=== PATIENT | male | born 1985 | race American Indian/Alaskan Native ===

== ENCOUNTER 2017-10-10 00:19 | Emergency (ER) | payer SELFPAY ==
[2017-10-10 00:30] VITALS: BP 144/96
[2017-10-10] MEDS ORDERED: ULTRAM ONE (03:29)
[2017-10-10] MEDS ORDERED: ULTRAM PO ONE (03:31)
--- NOTE | 2017-10-10 04:31 | Emergency Department Report ---
Upper Extremity - HPI Chief Complaint: Extremity Injury, Upper Stated Complaint: RIGHT HAND FINGER PAIN Time Seen by Provider: 10/10/17 03:44 Upper Extremity: Right Index Finger, Right Middle Finger (snagged finger in copier strap at work 1 week ago), Right Ring Finger Occurred When: >5 Days (7 days ago) Mechanism: Other (copier strap caught in right 3rd finger nail at work last Tuesday) Severity: moderate Symptoms: Yes Pain with Movement, No Deformity, No Limited Range of Movement, No Numbness, No Weakness, No Swelling, No Bruising/Ecchymosis, No Laceration or Abrasion Other History: This is a 32 y.o. male that presents with pain to 3rd finger nail on right hand. Patient reports snagging 3rd finger of right hand on copier strap while lifting multiple cases of paper. He pulled strap from under 3rd finger, it rubbed against index and ringer finger. He is now having discomfort to index and ring finger of right hand. Patient report pain as sharp with touch. It got worse as the week progressed. He is taking OTC pain medication with no improvement of symtpoms. He started taking left over antibiotics but no improvement of pain. Denies numbness, tingling, swelling, erythema, and deformity. ED Review of Systems ROS: Stated complaint: RIGHT HAND FINGER PAIN Other details as noted in HPI Constitutional: denies: chills, fever, malaise Respiratory: denies: cough, shortness of breath, wheezing Cardiovascular: denies: chest pain, palpitations, edema, syncope Gastrointestinal: denies: abdominal pain, nausea, vomiting, diarrhea Musculoskeletal: myalgia (tenderness on palpation of 3rd finger nail). denies: back pain, joint swelling, arthralgia Skin: denies: rash, lesions, change in hair/nails Neurological: denies: headache, weakness, numbness, paresthesias ED Past Medical Hx - Past Medical History Previous Medical History?: No - Surgical History Past Surgical History?: Yes Hx Cholecystectomy: Yes - Social History Smoking Status: Current Every Day Smoker Substance Use Type: None - Medications Home Medications: Home Medications Medication Instructions Recorded Confirmed Last Taken Type Bacitracin Zinc [Antibiotic] 28.4 gm TP BID #1 tube 10/10/17 Unknown Rx Ibuprofen 800 mg PO Q6H PRN #20 tablet 10/10/17 Unknown Rx Upper Extremity Exam - Exam General: Vital signs noted. No distress. Alert and acting appropriately. Head and Torso: No HEENT Abnormality, No Neck Tenderness, No Chest/Lungs Abnormality, No Abdominal Tenderness, No Back Tenderness Shoulder Exam: Yes Normal Range of Motion in Shoulder, No Shoulder Tenderness, No Clavicle Tenderness, No Shoulder Deformity, No AC Joint Tenderness Arm Exam: No Arm/Humerus Tenderness, No Arm Deformity Elbow: No Elbow Tenderness, No Normal Range of Motion in Elbow, No Elbow Deformity Forearm: No Forearm Tenderness, No Forearm Deformity, No Pain with Pronation, No Pain with Supination Wrist: Yes Normal ROM in Wrist, No Wrist Tenderness, No Wrist Deformity, No Snuffbox Tenderness, No Pain with Axial Thumb Compression Hand: Yes Hand Tenderness (on palpation of right 3rd, distal palanx around nail tip, nail bed intake, no swelling, hematoma, or laceration), Yes Normal ROM in Digit(s), No Hand Deformity, No Digit Tenderness, No Digit(s) Deformity, No Tendon Dysfunction CMS Exam: Yes Normal Distal Pulses, Yes Normal Capillary Refill, Yes Normal Distal Sensation, No Broken Skin ED Course Vital Signs 10/10/17 10/10/17 00:21 00:27 Temperature 98.4 F 98.4 F Pulse Rate 69 72 Respiratory 18 17 Rate Blood Pressure 144/96 144/96 O2 Sat by Pulse 97 99 Oximetry ED Medical Decision Making - Medical Decision Making This is a 32 y.o. male presents with right 3rd digit pain for 1 week. Patient examined by me. Patient is non-toxic appearing and stable. Given tramadol 50 mg po once in ER. Reports pain improved. Physical examination is susceptible of right finger nail bed injury. Discharged home for outpatient treatment with bacitracin ointment and Ibuprofen 800 mg po q6h #20 for pain. Discussed ER care plan with patient. Patient agreed with plan. F/U with PCP in 2-3 days. Critical care attestation.: If time is entered above; I have spent that time in minutes in the direct care of this critically ill patient, excluding procedure time. ED Disposition Clinical Impression: Pain in finger of right hand Injury of nail bed of finger of right hand Qualifiers: Encounter type: initial encounter Qualified Code(s): S69.91XA - Unspecified injury of right wrist, hand and finger(s), initial encounter Disposition: TO HOME OR SELFCARE Is pt being admited?: No Does the pt Need Aspirin: No Condition: Stable Instructions: Arthralgia (ED) Additional Instructions: Take tylenol or ibuprofen for pain. Keep right hand clean with soap and water and apply bacitracin ointment to affected nails twice a day. Follow up with primary care provider in 2-3 days. Prescriptions: Bacitracin Zinc [Antibiotic] 28.4 gm TP BID #1 tube Ibuprofen 800 mg PO Q6H PRN #20 tablet PRN Reason: Pain Referrals: [facility] [Outside] - 3-5 Days [facility] [Outside] - 3-5 Days [facility] [Outside] - 3-5 Days Forms: Work/School Release Form(ED) Time of Disposition: 04:43 Print Language: SALVADOREAN
== END 2017-10-10 04:45 | disposition home or self-care (01) ==
LOC: ED 00:19
DX: S69.91XA Unspecified injury of right wrist, hand and finger(s), initial encounter (principal); F17.200 Nicotine dependence, unspecified, uncomplicated; Z90.49 Acquired absence of other specified parts of digestive tract; W23.0XXA Caught, crushed, jammed, or pinched between moving objects, initial encounter; Y93.89 Activity, other specified; Y92.89 Other specified places as the place of occurrence of the external cause; Y99.8 Other external cause status
CPT/HCPCS: 99282

== ENCOUNTER 2019-05-30 08:03 | Emergency (ER) | payer SELFPAY ==
[2019-05-30 08:11] VITALS: BP 143/93
--- NOTE | 2019-05-30 08:34 | Emergency Department Report ---
ED Recheck HPI - General Chief Complaint: Dental/Oral Stated Complaint: TOOTHACHE/POSS INFECTION/HEADACHE Time Seen by Provider: 05/30/19 08:25 Source: patient Mode of arrival: Ambulatory Limitations: No Limitations - History of Present Illness Initial Comments: 34 yo comes to ER with left molar dental pain. He was recently seen at [place] and given rx for amox but he states the pain is getting worse- with sharp pain rad to head and ear. 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 Thus he comes to ER. There is no abscess, decay, he is taking PO, controlling secretions. HR 90 on exam. MD Complaint: other Associated Symptoms: none - Related Data Previous Rx's Medication Instructions Recorded Last Taken Type Acetaminophen [Tylenol] 975 mg PO Q8H PRN #30 capsule 05/30/19 Unknown Rx Clindamycin [Clindamycin CAP] 300 mg PO Q8H #30 cap 05/30/19 Unknown Rx Ibuprofen [Motrin] 800 mg PO Q8HR PRN #30 tablet 05/30/19 Unknown Rx Allergies Allergy/AdvReac Type Severity Reaction Status Date / Time No Known Allergies Allergy Verified 10/10/17 03:31 ED Review of Systems ROS: Stated complaint: TOOTHACHE/POSS INFECTION/HEADACHE Other details as noted in HPI Comment: All other systems reviewed and negative ED Past Medical Hx - Past Medical History Previous Medical History?: No - Surgical History Past Surgical History?: Yes Hx Cholecystectomy: Yes - Social History Smoking Status: Current Every Day Smoker Substance Use Type: Marijuana - Medications Home Medications: Home Medications Medication Instructions Recorded Confirmed Last Taken Type Acetaminophen [Tylenol] 975 mg PO Q8H PRN #30 capsule 05/30/19 Unknown Rx Clindamycin [Clindamycin CAP] 300 mg PO Q8H #30 cap 05/30/19 Unknown Rx Ibuprofen [Motrin] 800 mg PO Q8HR PRN #30 tablet 05/30/19 Unknown Rx ED Physical Exam - General Limitations: No Limitations General appearance: alert, in no apparent distress - Head Head exam: Present: atraumatic, normocephalic - Eye Eye exam: Present: normal appearance - ENT ENT exam: Present: mucous membranes moist - Expanded ENT Exam Expanded Ear exam: Present: normal external inspection TM/Canal exam: Erythema: Left TM, Bulging: Left TM, Effusion: Left TM, Perforation: Left TM, Loss of Landmarks: Left TM, Canal Tenderness: Left TM Mouth exam: Present: normal external inspection, tongue normal. Absent: drooling, trismus, muffled voice, tongue elevation, laceration Teeth exam: Present: dental caries 1 - Other (caries) Throat exam: Positive: normal inspection - Neck Neck exam: Present: normal inspection - Respiratory Respiratory exam: Present: normal lung sounds bilaterally. Absent: respiratory distress - Cardiovascular Cardiovascular Exam: Present: regular rate, normal rhythm. Absent: systolic murmur, diastolic murmur, rubs, gallop - GI/Abdominal GI/Abdominal exam: Present: soft, normal bowel sounds - Rectal Rectal exam: Present: deferred - Extremities Exam Extremities exam: Present: normal inspection - Back Exam Back exam: Present: normal inspection - Neurological Exam Neurological exam: Present: alert, oriented X3 - Psychiatric Psychiatric exam: Present: normal affect, normal mood - Skin Skin exam: Present: warm, dry, intact, normal color. Absent: rash ED Course Vital Signs 05/30/19 08:09 Temperature 97.8 F Pulse Rate 110 H Respiratory 16 Rate Blood Pressure 143/93 O2 Sat by Pulse 98 Oximetry ED Recheck MDM - Core Measures Measure Exclusions: not indicated - Medical Decision Making changed antibiotic to clinda rx for motrin/tylenol given addition resources for dmd that may be able to see him sooner. dc home with follow up plan of care. Vital Signs 05/30/19 08:09 Temperature 97.8 F Pulse Rate 110 H Respiratory 16 Rate Blood Pressure 143/93 O2 Sat by Pulse 98 Oximetry Critical care attestation.: If time is entered above; I have spent that time in minutes in the direct care of this critically ill patient, excluding procedure time. ED Disposition Clinical Impression: Pain, dental, Dental caries Disposition: DC-01 TO HOME OR SELFCARE Is pt being admited?: No Does the pt Need Aspirin: No Condition: Stable Instructions: Dental Caries (ED) Prescriptions: Clindamycin [Clindamycin CAP] 300 mg PO Q8H #30 cap Ibuprofen [Motrin] 800 mg PO Q8HR PRN #30 tablet PRN Reason: Pain, Moderate (4-6) Acetaminophen [Tylenol] 975 mg PO Q8H PRN #30 capsule PRN Reason: Pain, Mild (1-3) Referrals: [facility] [Outside] - 3-5 Days [facility] [Outside] - 3-5 Days Forms: Work/School Release Form(ED) Time of Disposition: 08:31
== END 2019-05-30 08:51 | disposition home or self-care (01) ==
LOC: ED 08:03
DX: K02.9 Dental caries, unspecified (principal); F17.200 Nicotine dependence, unspecified, uncomplicated; F12.10 Cannabis abuse, uncomplicated

== ENCOUNTER 2022-01-10 23:22 | Emergency (ER) | payer SELFPAY ==
[2022-01-11 00:02] VITALS: BP 131/83
--- NOTE | 2022-01-11 01:31 | Emergency Department Report ---
ED Chest Pain HPI - General Chief Complaint: Chest Pain Stated Complaint: CHEST PAIN, LEFT ARM PAIN, SOB Time Seen by Provider: 01/11/22 01:21 Source: patient Mode of arrival: Ambulatory Limitations: No Limitations - History of Present Illness Initial Comments: 36-year-old male with with elevated BMI presents emergency department complaining of having episode of chest pain just prior to arrival which was preceded by some other risk factors and contributing factors. Around 6:30 PM today he was hanging out with friends and did a half a line of cocaine may be even smaller and it energized him And everything felt fairly well. A few hours later while walking around [facility] he was carrying a lot of items in his left arm and the some of [employer] ice cream cake mix and a few other heavy things while he was holding them up for prolonged period of time and once he had checked out noticed some tingling to his arm but thought nothing of it. After getting home to his girlfriend he explained to her what he felt at [facility] and because of his risk factors the fact that he has smoked some cannabis earlier as well as cocaine he became began to experience some anxiety about possible having a stroke as was recommended by his girlfriend which led to his visit today. - Related Data Previous Rx's Medication Instructions Recorded Last Taken Type Acetaminophen [Tylenol] 975 mg PO Q8H PRN #30 capsule 05/30/19 Unknown Rx Clindamycin [Clindamycin CAP] 300 mg PO Q8H #30 cap 05/30/19 Unknown Rx Ibuprofen [Motrin] 800 mg PO Q8HR PRN #30 tablet 05/30/19 Unknown Rx Allergies Allergy/AdvReac Type Severity Reaction Status Date / Time No Known Allergies Allergy Verified 10/10/17 03:31 Heart Score - HEART Score History: Slightly suspicious EKG: Normal Age: < 45 Risk factors: > 3 risk factors or hx of atherosclerotic disease Troponin: < normal limit HEART Score: 2 - EKG Read Time Time EKG Completed: 23:30 EKG Read Time: 23:34 ED Review of Systems ROS: Stated complaint: CHEST PAIN, LEFT ARM PAIN, SOB Other details as noted in HPI Comment: All other systems reviewed and negative ED Past Medical Hx - Past Medical History Previous Medical History?: Yes Hx Diabetes: Yes Additional medical history: Obesity - Surgical History Past Surgical History?: Yes Hx Cholecystectomy: Yes - Social History Smoking Status: Current Every Day Smoker Substance Use Type: Cocaine - Medications Home Medications: Home Medications Medication Instructions Recorded Confirmed Last Taken Type Acetaminophen [Tylenol] 975 mg PO Q8H PRN #30 capsule 05/30/19 Unknown Rx Clindamycin [Clindamycin CAP] 300 mg PO Q8H #30 cap 05/30/19 Unknown Rx Ibuprofen [Motrin] 800 mg PO Q8HR PRN #30 tablet 05/30/19 Unknown Rx ED Physical Exam - General Limitations: No Limitations General appearance: alert, in no apparent distress - Head Head exam: Present: atraumatic, normocephalic - Eye Eye exam: Present: normal appearance, PERRL Pupils: Present: normal accommodation - ENT ENT exam: Present: normal exam, normal orophraynx, mucous membranes moist, TM's normal bilaterally - Neck Neck exam: Present: normal inspection, full ROM - Respiratory Respiratory exam: Present: normal lung sounds bilaterally. Absent: respiratory distress, wheezes, rales, chest wall tenderness, accessory muscle use, decreased breath sounds - Cardiovascular Cardiovascular Exam: Present: regular rate, normal rhythm. Absent: systolic murmur, diastolic murmur, rubs, gallop - GI/Abdominal GI/Abdominal exam: Present: soft, normal bowel sounds - Rectal Rectal exam: Present: deferred - Extremities Exam Extremities exam: Present: normal inspection - Back Exam Back exam: Present: normal inspection - Neurological Exam Neurological exam: Present: alert, oriented X3 - Psychiatric Psychiatric exam: Present: normal affect, normal mood - Skin Skin exam: Present: warm, dry, intact, normal color. Absent: rash ED Course Vital Signs 01/10/22 23:27 Temperature 98.3 F Pulse Rate 98 H Respiratory 18 Rate Blood Pressure 131/83 O2 Sat by Pulse 99 Oximetry KADEEM score - Kadeem Score Age > 65: (0) No Aspirin use within the Past 7 Days: (0) No 3 or more CAD Risk Factors: (1) Yes 2 or more Angina events in past 24 hrs: (0) No Known CAD with more than 50% Stenosis: (0) No Elevated Cardiac Markers: (0) No ST Deviation Greater than 0.5mm: (0) No KADEEM Score: 1 ED Medical Decision Making - Lab Data Result diagrams: 01/11/22 01:34 01/11/22 01:34 Lab Results 01/11/22 01/11/22 Range/Units 01:34 01:34 WBC 8.4 (4.5-11.0) K/mm3 RBC 4.44 (3.65-5.03) M/mm3 Hgb 13.6 (11.8-15.2) gm/dl Hct 41.3 (35.5-45.6) % MCV 93 (84-94) fl MCH 31 (28-32) pg MCHC 33 (32-34) % RDW 12.5 L (13.2-15.2) % Plt Count 282 (140-440) K/mm3 Lymph % (Auto) 41.0 H (13.4-35.0) % Emmons % (Auto) 5.8 (0.0-7.3) % Eos % (Auto) 2.7 (0.0-4.3) % Baso % (Auto) 0.9 (0.0-1.8) % Lymph # (Auto) 3.4 (1.2-5.4) K/mm3 Emmons # (Auto) 0.5 (0.0-0.8) K/mm3 Eos # (Auto) 0.2 (0.0-0.4) K/mm3 Baso # (Auto) 0.1 (0.0-0.1) K/mm3 Seg Neutrophils % 49.6 (40.0-70.0) % Seg Neutrophils # 4.2 (1.8-7.7) K/mm3 Sodium 139 (137-145) mmol/L Potassium 4.7 (3.6-5.0) mmol/L Chloride 103.3 (98-107) mmol/L Carbon Dioxide 25 (22-30) mmol/L Anion Gap 15 mmol/L BUN 7 L (9-20) mg/dL Creatinine 0.9 (0.8-1.3) mg/dL Estimated GFR > 60 ml/min BUN/Creatinine Ratio 8 % Glucose 114 H (75-100) mg/dL Calcium 10.0 (8.4-10.2) mg/dL Troponin T < 0.010 (0.00-0.029) ng/mL - EKG Data EKG shows normal: sinus rhythm Rate: normal - Radiology Data Radiology results: report reviewed [facility] [address] [place] [address] XRay Report Signed Patient: REJI WALLACE MR#: [id number] : 1985 Acct:[id number] Age/Sex: 36 / M ADM Date: 01/10/22 Loc: ED Attending Dr: Ordering Physician: MARVIN MORALES Date of Service: 01/11/22 Procedure(s): XR chest routine 2V Accession Number(s): [id number] cc: MARVIN MORALES Fluoro Time In Minutes: CHEST 2 VIEWS INDICATION / CLINICAL INFORMATION: Chest Pain. COMPARISON: None available. FINDINGS: SUPPORT DEVICES: None. HEART / MEDIASTINUM: No significant abnormality. LUNGS / PLEURA: No significant pulmonary or pleural abnormality. No pneumothorax. ADDITIONAL FINDINGS: No significant additional findings. IMPRESSION: 1. No acute findings. Signer Name: Burak Wu DO Signed: 01/11/2022 1:50 AM Workstation Name: [id number] Transcribed By: YE Dictated By: BURAK WU DO Electronically Authenticated By: BURAK WU DO Signed Date/Time: 01/11/22149 DD/ 9 TD/TT: - Medical Decision Making 36-year-old male presents emerged department with chest pain after we cocaine and was allowed to go to the car by nursing but never returned Critical care attestation.: If time is entered above; I have spent that time in minutes in the direct care of this critically ill patient, excluding procedure time. ED Disposition Clinical Impression: Chest pain Disposition: 07 LEFT AWOL/ELOPED Is pt being admited?: No Does the pt Need Aspirin: No Condition: Undetermined Instructions: Nonspecific Chest Pain, Adult Referrals: PRIMARY CARE,MD [Primary Care Provider] - 3-5 Days
[2022-01-11 01:46] LABS: Basophils # (Auto) 0.1 K/mm3 (0.0-0.1); Basophils % (Auto) 0.9 % (0.0-1.8); Eosinophils # (Auto) 0.2 K/mm3 (0.0-0.4); Eosinophils % (Auto) 2.7 % (0.0-4.3); Hematocrit 41.3 % (35.5-45.6); Hemoglobin 13.6 gm/dl (11.8-15.2); Lymphocytes # (Auto) 3.4 K/mm3 (1.2-5.4); Mean Corpuscular HGB Conc 33 % (32-34); Mean Corpuscular Volume 93 fl (84-94); Monocytes # (Auto) 0.5 K/mm3 (0.0-0.8); Monocytes % (Auto) 5.8 % (0.0-7.3); Platelet Count 282 K/mm3 (140-440); Red Blood Count 4.44 M/mm3 (3.65-5.03); Red Cell Distribution Width 12.5 % (13.2-15.2)
--- NOTE | 2022-01-11 01:55 | XRay Report ---
CHEST 2 VIEWS INDICATION / CLINICAL INFORMATION: Chest Pain. COMPARISON: None available. FINDINGS: SUPPORT DEVICES: None. HEART / MEDIASTINUM: No significant abnormality. LUNGS / PLEURA: No significant pulmonary or pleural abnormality. No pneumothorax. ADDITIONAL FINDINGS: No significant additional findings. IMPRESSION: 1. No acute findings. Signer Name: Burak Wu DO Signed: 01/11/2022 1:50 AM Workstation Name: [id number]
[2022-01-11 02:08] LABS: BUN/Creatinine Ratio 8; Blood Urea Nitrogen 7 mg/dL (9-20); Hemolysis Index 32
--- NOTE | 2022-01-11 10:50 | Electrocardiograph Report ---
[facility] Test Date: 2022-01-10 Test Time: 23:37:38 Pat Name: REJI WALLACE Department: Room: Gender: M [place] [employer] Installer: HERSON : 1985 Requested By: ED DOC Order Number: [id number] Reading MD: Adina Solomon Measurements Intervals [place] Rate: 80 P: 42 CO: 178 QRS: 13 QRSD: 93 T: 26 QT: 366 QTc: 422 Interpretive Statements Sinus rhythm No previous ECG available for comparison Electronically Signed On 01-11-2022 10:50:18 EDT by Adina Solomon
== END 2022-01-11 05:00 | disposition left against medical advice (07) ==
LOC: ED 23:22
DX: R07.9 Chest pain, unspecified (principal); R06.02 Shortness of breath; M79.602 Pain in left arm; Z53.21 Procedure and treatment not carried out due to patient leaving prior to being seen by health care provider
CPT/HCPCS: 36415; 71046; 80048; 84484; 85025; 93005